=== PATIENT | male | born 1975 | race Hispanic/Latino ===

== ENCOUNTER 2022-07-14 18:45 | Emergency (ER) | payer SELFPAY ==
[2022-07-14] MEDS ORDERED: diphenhydrAMINE 25 MG CAP ONE (18:59)
[2022-07-14] MEDS ORDERED: Dexamethasone 4 MG TAB ONE (19:01)
[2022-07-14] MEDS ORDERED: Famotidine 20 MG TAB ONE (19:01)
== END 2022-07-14 20:11 | disposition home or self-care (01) ==
LOC: ERS 18:45
DX: L50.0 Allergic urticaria (principal)
CPT/HCPCS: 99283; J8540